=== PATIENT | male | born 1960 | race Hispanic/Latino ===

== ENCOUNTER 2018-08-10 14:00 | Emergency (ER) | payer OTHER | END 2018-08-10 15:43 | disposition home or self-care (01) | LOC: EDH 14:00 | DX: S83.8X1A Sprain of other specified parts of right knee, initial encounter (principal); E78.5 Hyperlipidemia, unspecified; I10 Essential (primary) hypertension; E11.9 Type 2 diabetes mellitus without complications; W01.0XXA Fall on same level from slipping, tripping and stumbling without subsequent striking against object, initial encounter; Y93.89 Activity, other specified; Y92.89 Other specified places as the place of occurrence of the external cause; Y99.8 Other external cause status | CPT/HCPCS: 73562 ==

== ENCOUNTER 2021-06-02 12:50 | Observation (INO) | payer OTHER ==
[~2021-06-02] VITALS: Ht 177.8 cm; Wt 127.0 kg
[2021-06-02] MEDS: INSULIN HUMULIN R 100 UNIT/ML 3ML SQ SCH ×2 (07:19→16:42)
[2021-06-02 12:52] VITALS: BP 135/105
[2021-06-02 13:28] VITALS: BP 132/92
[2021-06-02 13:52] LABS: BASOPHILS % (AUTO) 0.4 % (0.0-5.0); EOSINOPHILS % (AUTO) 1.4 % (0.0-8.0); HEMATOCRIT 51.6 % (42-54); LYMPHOCYTES % (AUTO) 26.6 % (21.0-51.0); MEAN CORPUSCULAR HEMOGLOBIN 32.5 pg (27.0-33.0); MEAN CORPUSCULAR HGB CONC 33.9 g/dL (32.0-36.0); MEAN CORPUSCULAR VOLUME 95.7 fL (79-99); MONOCYTES % (AUTO) 4.2 % (3.0-13.0); NEUTROPHILS % (AUTO) 66.9 % (40.0-77.0); PLATELET COUNT (AUTO) 214 K/uL (130-400); RED BLOOD CELL COUNT(AUTO) 5.39 MIL/uL (4.50-6.20); RED CELL DISTRIBUTION WIDTH 11.9 % (11.0-15.5); WHITE BLOOD COUNT (AUTO) 18.2 K/uL (4.8-10.8)
[2021-06-02] MEDS ORDERED: DiphenhydrAMINE HCL 50 MG/ML VIAL IV ONE (14:00)
[2021-06-02] MEDS ORDERED: DEXAMETHASONE SOD PHOSPHATE 10MG/ML 1ML VIAL IV ONE (14:00)
[2021-06-02] MEDS ORDERED: ONDANSETRON 4MG INJ IVP ONE (14:00)
[2021-06-02] MEDS ORDERED: 0.9%NACL 1000ML 1,000 ML IV ONE (14:00)
[2021-06-02] MEDS ORDERED: DEXAMETHASONE 10MG/ML 1ML VIAL 0 MG in 0.9%NACL 50ML 50 ML IV SCH (14:00)
[2021-06-02] MEDS ORDERED: FAMOTIDINE 20MG VIAL IV ONE (14:00)
[2021-06-02 14:08] LABS: ALBUMIN 4.8 g/dL (3.5-5.0); BILIRUBIN,TOTAL 0.8 mg/dL (0.2-1.0); CREATININE 1.2 mg/dL (0.5-1.5); POTASSIUM 3.8 mmol/L (3.5-5.1)
[2021-06-02 14:55] LABS: APPEARANCE,URINE Clear (CLEAR); BILIRUBIN,URINE Negative (NEGATIVE); COLOR,URINE Yellow (YELLOW); GLUCOSE, URINE (UA) >=1000 mg/dL (NEGATIVE); KETONES,URINE 15 mg/dL (NEGATIVE); LEUKOCYTE ESTERASE ,URINE Negative (NEGATIVE); NITRATE,URINE Negative (NEGATIVE); OCCULT BLOOD,URINE Negative (NEGATIVE); PH,URINE 5.5 (5.0-8.0); PROTEIN,URINE 300 mg/dL (NEGATIVE)
[2021-06-02 15:02] LABS: BACTERIA,URINE Rare /HPF (None Seen); MUCUS,URINE Few LPF (None Seen); RBC,URINE 0-1 /HPF (0-1); SQUAMOUS EPITHELIAL CELL,UR Rare /HPF (0-2); WBC,URINE 0-1 /HPF (0-1)
[2021-06-02 15:03] LABS: AMPHET/METH SCREEN,URINE NEGATIVE (NEGATIVE); BARBITURATE SCREEN, URINE NEGATIVE (NEGATIVE); BENZODIAZEPINES SCREEN,URINE NEGATIVE (NEGATIVE); CANNABINOID SCREEN,URINE NEGATIVE (NEGATIVE); COCAINE SCREEN,URINE NEGATIVE (NEGATIVE); OPIATE SCREEN,URINE NEGATIVE (NEGATIVE); PHENCYCLIDINE SCREEN,URINE NEGATIVE (NEGATIVE)
[2021-06-02] MEDS ORDERED: INSULIN HUMULIN R 100 UNIT/ML 3ML SQ SCH (15:30)
[2021-06-02] MEDS ORDERED: ACETAMINOPHEN 650 MG SUPPOSITORY RC PRN (16:00)
[2021-06-02] MEDS ORDERED: LIDOCAINE HCL-MPF 1% 2ML VIAL IV PRN (16:00)
[2021-06-02] MEDS ORDERED: CLONIDINE HCL 0.1 MG TABLET PO PRN (16:00)
[2021-06-02] MEDS ORDERED: GLUCAGON 1MG KIT 1 MG ML IM PRN (16:00)
[2021-06-02] MEDS ORDERED: ALBUTEROL 0.083% 2.5 MG/3 ML INH IH PRN (16:00)
[2021-06-02] MEDS ORDERED: DIPHENHYDRAMINE HCL 25 MG CAPSULE PO ONE (16:00)
[2021-06-02] MEDS ORDERED: DEXTROSE 50%-WATER 50 ML DISP.SYRIN IV PRN (16:00)
[2021-06-02] MEDS ORDERED: POTASSIUM CHLORIDE 20MEQ/100ML 100 ML IV PRN (16:00)
[2021-06-02] MEDS ORDERED: ACETAMINOPHEN 325 MG TAB PO PRN (16:00)
[2021-06-02] MEDS ORDERED: ONDANSETRON 4MG INJ IVP PRN (16:00)
[2021-06-02] MEDS ORDERED: DiphenhydrAMINE HCL 50 MG/ML VIAL IV PRN (16:00)
[2021-06-02] MEDS ORDERED: KCL 20 MEQ ERTAB PO PRN (16:00)
[2021-06-02] MEDS ORDERED: POTASSIUM CHLORIDE 10% ELIXIR 20 MEQ/15 ML UDCUP PO PRN (16:00)
[2021-06-02] MEDS: 0.9%NACL 1000ML 1,000 ML IV SCH ×2 (16:41→20:43)
[2021-06-02 18:07] LABS: POTASSIUM 4.5 mmol/L (3.5-5.1)
[2021-06-02 18:55] VITALS: BP 132/92
[2021-06-02] MEDS: FAMOTIDINE 20MG VIAL IV SCH (22:15)
[2021-06-02] MEDS: SOLU-MEDROL 40MG VIAL IVP SCH (22:15)
[2021-06-03 01:22] LABS: CREATININE 1.1 mg/dL (0.5-1.5); POTASSIUM 4.2 mmol/L (3.5-5.1)
[2021-06-03 03:28] VITALS: BP 138/89
[2021-06-03 04:40] LABS: BASOPHILS % (AUTO) 0.2 % (0.0-5.0); HEMATOCRIT 44.8 % (42-54); LYMPHOCYTES % (AUTO) 5.6 % (21.0-51.0); MEAN CORPUSCULAR HGB CONC 34.8 g/dL (32.0-36.0); MEAN CORPUSCULAR VOLUME 94.7 fL (79-99); MONOCYTES % (AUTO) 1.5 % (3.0-13.0); NEUTROPHILS % (AUTO) 92.4 % (40.0-77.0); PLATELET COUNT (AUTO) 161 K/uL (130-400); RED BLOOD CELL COUNT(AUTO) 4.73 MIL/uL (4.50-6.20); RED CELL DISTRIBUTION WIDTH 12.3 % (11.0-15.5); WHITE BLOOD COUNT (AUTO) 12.3 K/uL (4.8-10.8)
[2021-06-03 04:48] LABS: HEMOGLOBIN A1C 9.1 % (4.0-6.0)
[2021-06-03 04:55] LABS: CREATININE 0.9 mg/dL (0.5-1.5); POTASSIUM 4.1 mmol/L (3.5-5.1)
[2021-06-03] MEDS ORDERED: ENAL2.5T16 PO (05:47)
[2021-06-03] MEDS ORDERED: ERGO500093 PO (05:47)
[2021-06-03] MEDS ORDERED: DULA1.5P SQ (05:47)
[2021-06-03] MEDS ORDERED: ATOR40TA71 PO (05:47)
[2021-06-03 06:21] VITALS: BP 128/78
[2021-06-03] MEDS: 0.9%NACL 1000ML 1,000 ML IV SCH (06:37)
[2021-06-03] MEDS: INSULIN HUMULIN R 100 UNIT/ML 3ML SQ SCH (07:30)
[2021-06-03] MEDS ORDERED: DIPH25CA85 PO (08:13)
[2021-06-03] MEDS ORDERED: FAMO-136 PO (08:13)
[2021-06-03] MEDS ORDERED: METH4TAB3 PO (08:13)
[2021-06-03] MEDS: SOLU-MEDROL 40MG VIAL IVP SCH (08:53)
[2021-06-03] MEDS: FAMOTIDINE 20MG VIAL IV SCH (08:53)
[2021-06-03] MEDS ORDERED: ENOXAPARIN SODIUM 40 MG/0.4 ML SYRINGE SQ SCH (09:00)
== END 2021-06-03 09:00 | disposition home or self-care (01) ==
LOC: EDH 12:50 → EDHIP 15:55
PROVIDERS: ADMIT Internal Medicine Pulmonary Disease; ATTEND Internal Medicine Pulmonary Disease
DX: T63.441A Toxic effect of venom of bees, accidental (unintentional), initial encounter (principal); D72.829 Elevated white blood cell count, unspecified; E11.65 Type 2 diabetes mellitus with hyperglycemia; I10 Essential (primary) hypertension; R11.2 Nausea with vomiting, unspecified; E78.5 Hyperlipidemia, unspecified; E78.00 Pure hypercholesterolemia, unspecified; E66.09 Other obesity due to excess calories; Z79.4 Long term (current) use of insulin; Z79.899 Other long term (current) drug therapy; Z68.41 Body mass index [BMI] 40.0-44.9, adult; Y92.89 Other specified places as the place of occurrence of the external cause
CPT/HCPCS: 36415 ×2; 80048 ×2; 80053; 80305; 81001; 82550 ×3; 82948; 83036; 84484 ×4; 85025 ×2; 93005; 94640; 96361 ×2; 96372; 96374; 96375; 96376 ×2; 99284; G0378 ×16; J1100; J1200; J1650; J1815; J2405; J2920 ×2; J3490 ×3; J7030

== ENCOUNTER 2024-04-20 12:46 | Emergency (ER) | payer OTHER ==
[~2024-04-20] VITALS: Ht 177.8 cm; Wt 127.0 kg
[~2024-04-20 12:46] MED LIST: ATOR40TA71 PO; DIPH25CA85 PO; DULA1.5P SQ; ENAL2.5T71 PO; ERGO500093 PO; FAMO-136 PO; METH4TAB3 PO
[2024-04-20] MEDS: ONDANSETRON ODT 4MG TAB SL ONE (13:01)
[2024-04-20 13:48] LABS: POTASSIUM 4.3 mmol/L (3.5-5.1)
[2024-04-20 13:50] LABS: INR <= 0.93 (0.85-1.15); PROTHROMBIN TIME 10.7 SEC (9.6-11.6)
[2024-04-20 13:53] LABS: BILIRUBIN,TOTAL 0.9 mg/dL (0.2-1.0); TOTAL PROTEIN, SERUM 7.5 g/dL (6.0-8.3)
[2024-04-20 14:04] LABS: BASOPHILS # (AUTO) 0.04 K/uL (0.00-0.20); BASOPHILS % (AUTO) 0.5 % (0.0-5.0); EOSINOPHILS # (AUTO) 0.09 K/uL (0.00-0.70); EOSINOPHILS % (AUTO) 1.2 % (0.0-8.0); HEMATOCRIT 43.8 % (42-54); IMMATURE GRANULOCYTE ABSOLUTE 0.04 K/uL (0-1); LYMPHOCYTES # (AUTO) 1.3 K/uL (1.0-4.8); LYMPHOCYTES % (AUTO) 16.5 % (21.0-51.0); MEAN CORPUSCULAR HEMOGLOBIN 33.5 pg (27.0-33.0); MEAN CORPUSCULAR HGB CONC 35.8 g/dL (32.0-36.0); MEAN CORPUSCULAR VOLUME 93.4 fL (79-99); MONOCYTES # (AUTO) 0.4 K/uL (0.1-1.0); NEUTROPHILS # (AUTO) 5.8 K/uL (1.8-7.7); NEUTROPHILS % (AUTO) 76.3 % (40.0-77.0); PLATELET COUNT (AUTO) 143 K/uL (130-400); RED BLOOD CELL COUNT(AUTO) 4.69 MIL/uL (4.50-6.20); RED CELL DISTRIBUTION WIDTH 12.1 % (11.0-15.5); WHITE BLOOD COUNT (AUTO) 7.6 K/uL (4.8-10.8)
[2024-04-20] MEDS: 0.9%NACL 1000ML 1,000 ML IV ONE (15:16)
[2024-04-20 16:01] VITALS: BP 138/74; PULSE 68; RESP 18; O2SAT 97
== END 2024-04-20 16:01 | disposition home or self-care (01) ==
LOC: EDH 12:46
DX: R42 Dizziness and giddiness (principal); E11.65 Type 2 diabetes mellitus with hyperglycemia; E78.00 Pure hypercholesterolemia, unspecified; I10 Essential (primary) hypertension; E66.9 Obesity, unspecified; Z68.41 Body mass index [BMI] 40.0-44.9, adult
CPT/HCPCS: 36415; 70450; 71045; 80053; 84484; 85025; 85610; 85730; 93005

== ENCOUNTER 2024-12-08 15:09 | Emergency (ER) | payer OTHER, MEDICARE ==
[~2024-12-08] VITALS: Ht 177.8 cm; Wt 111.1 kg
--- NOTE | 2024-12-08 15:42 | EKG ---
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
[2024-12-08 15:54] LABS: BASOPHILS # (AUTO) 0.03 K/uL (0.00-0.20); BASOPHILS % (AUTO) 0.4 % (0.0-5.0); EOSINOPHILS # (AUTO) 0.17 K/uL (0.00-0.70); EOSINOPHILS % (AUTO) 2.4 % (0.0-8.0); HEMATOCRIT 45.5 % (42-54); IMMATURE GRANULOCYTE ABSOLUTE 0.02 K/uL (0-1); LYMPHOCYTES # (AUTO) 1.7 K/uL (1.0-4.8); LYMPHOCYTES % (AUTO) 23.5 % (21.0-51.0); MEAN CORPUSCULAR HEMOGLOBIN 33.4 pg (27.0-33.0); MEAN CORPUSCULAR HGB CONC 35.2 g/dL (32.0-36.0); MONOCYTES # (AUTO) 0.5 K/uL (0.1-1.0); MONOCYTES % (AUTO) 7.1 % (3.0-13.0); NEUTROPHILS # (AUTO) 4.8 K/uL (1.8-7.7); NEUTROPHILS % (AUTO) 66.3 % (40.0-77.0); PLATELET COUNT (AUTO) 143 K/uL (130-400); RED BLOOD CELL COUNT(AUTO) 4.79 MIL/uL (4.50-6.20); RED CELL DISTRIBUTION WIDTH 12.4 % (11.0-15.5); WHITE BLOOD COUNT (AUTO) 7.2 K/uL (4.8-10.8)
[2024-12-08] MEDS: ondanSETRON 4MG INJ IVP STA (15:58)
[2024-12-08] MEDS: morPHINE 2 MG SYG IVP ONE (15:59)
[2024-12-08 16:01] LABS: CREATININE 0.8 mg/dL (0.5-1.3); POTASSIUM 4.1 mmol/L (3.5-5.1)
--- NOTE | 2024-12-08 16:12 | HMCIMG ---
CT HEAD/BRAIN W/O CONTRAST HISTORY: Occipital headaches COMPARISON: None TECHNIQUE: Multiple sequential axial images of the head were obtained from the base of the skull through vertex. Patient was not given contrast through intravenous route. FINDINGS: The ventricles and extraventricular CSF spaces are dilated consistent with cerebral atrophy. Nonspecific white matter changes seen. There is no midline shift, mass effect or herniation. No acute intracranial bleed is seen. Visualized portion of the paranasal sinuses are grossly within normal limits. IMPRESSION: 1. No acute intracranial bleed is seen. 2. Atrophy with white matter changes. CT was performed with one or more following dose reduction techniques: automated exposure control, adjustment of the mA and kv according to patient's size, or use of a iterative reconstruction technique.
[2024-12-08] MEDS: 0.9%NACL 1000ML 1,000 ML IV STA (17:39)
--- NOTE | 2024-12-08 17:39 | ERN ---
ED Note History of Present Illness Stated Complaint: NECK PAIN,NAUSEA Chief Complaint: Headache Time Seen by MD: 15:11 Time Seen by Midlevel: 15:15 Dictation: 64-year-old male coming in complaining of an occipital headache and started yesterday . Patient states he tried taking Tylenol last night but did not help. Patient has a history of hypertension, diabetes and cholesterol. Denies any recent traumas. Denies any vision changes, nausea, vomiting, numbness, tingling or unilateral weakness. Denies any chest pain or chest discomfort. No recent illness. Allergies: Coded Allergies: No Known Drug Allergies (Unverified Allergy, Unknown, 06/02/21) Home Meds Active Scripts Diphenhydramine HCl (Benadryl) 25 Mg Capsule, 25 MG PO Q6HPRN PRN for ITCHING, #16 CAP Prov:NORMAN VERDE 06/03/21 Methylprednisolone (Medrol) 4 Mg Tab.ds.pk, 4 MG PO AD, #1 PACKET Prov:NORMAN VERDE 06/03/21 Famotidine (Pepcid) 20 Mg Tablet, 20 MG PO BID for 7 Days, #14 TAB Prov:NORMAN VERDE 06/03/21 Reported Medications Ergocalciferol (Vitamin D2) (Vitamin D2) 1,250 Mcg Capsule, 1 CAP PO QWEEK 06/03/21 Enalapril Maleate (Enalapril Maleate) 2.5 Mg Tablet, 1 TAB PO QDP 06/03/21 Atorvastatin Calcium (Atorvastatin Calcium) 40 Mg Tablet, 1 TAB PO QDP 06/03/21 Dulaglutide (Trulicity) 1.5 Mg/0.5 Ml Pen.injctr, 0.5 ML SQ QWEEK 06/03/21 Past Medical History Past Medical History: Diabetes-Type II, High Cholesterol, Hypertension Additional Past Medical Hx: OBESE Surgical History: None Review of System Dictation Constitutional: Negative for fever,chills, and weight loss Eyes: Negative for injury, pain,redness, and discharge ENT: Negative for injury,pain or swelling Cardiovascular: Negative for chest pain, palpitations, and edema Respiratory: Negative for shortness of breath, cough, and wheezing, Abdomen/GI: Negative for abdominal pain, nausea, vomiting, diarrhea, and constipation Back: Negative for injury and pain : Negative for injury, bleeding and discharge MS/Extremity: Negative for injury and deformity complaining of neck pain when he turns [id number] Skin: Negative for rash, and discoloration Neuro: Positive for headache, no weakness, no numbness, no tingling, and no seizure Psych: Negative for suicide ideation, homicidal ideation, and hallucinations Review of Systems: was completed Initial Vital Sign VS Vital Signs Date Time Temp Pulse Resp B/P (MAP) Pulse Ox O2 Delivery O2 Flow Rate FiO2 12/08/24 15:26 97.9 74 16 194/101 96 Room Air 0 12/08/24 15:59 21 Physical Exam Dictation General: awake, alert, NAD Head/Face: Normocephalic, atraumatic Eyes: PERRL, EOMI, vision at baseline ENT: oral cavity clear, TMs clear, no signs of infection Neck: Trachea midline, supple, no nuchal rigidity Cardiovascular: RRR, normal S1/S2, No MRGs, no JVD Respiratory: CTAB, no respiratory distress, No rales or wheezes Abdomen: Soft, non-tender, non-distended, normal bowel sounds, no guarding or rebound. Skin: Warm, dry, normal turgor, no rash MS/Extremity: Pulses equal, no cyanosis, neurovascular intact, FROM Neuro: COAx4, GCS 15, strength 5/5, CN 2-12 intact, normal cerebellar exam, normal gait, Psych: Normal behavior, mood, and affect normal Results (Laboratory/Radiology) Laboratory/Radiology Laboratory Tests Test 12/08/24 15:48 White Blood Count 7.2 K/uL (4.8-10.8) Red Blood Count 4.79 MIL/uL (4.50-6.20) Hemoglobin 16.0 g/dL (14.0-18.0) Hematocrit 45.5 % (42-54) Mean Corpuscular Volume 95.0 fL (79-99) Mean Corpuscular Hemoglobin 33.4 pg (27.0-33.0) H Mean Corpuscular Hemoglobin Concent 35.2 g/dL (32.0-36.0) Red Cell Distribution Width 12.4 % (11.0-15.5) Platelet Count 143 K/uL (130-400) Mean Platelet Volume 9.8 fL (7.5-10.5) Immature Granulocyte % (Auto) 0.3 % (0-1) Neutrophils (%) (Auto) 66.3 % (40.0-77.0) Lymphocytes (%) (Auto) 23.5 % (21.0-51.0) Monocytes (%) (Auto) 7.1 % (3.0-13.0) Eosinophils (%) (Auto) 2.4 % (0.0-8.0) Basophils (%) (Auto) 0.4 % (0.0-5.0) Neutrophils # (Auto) 4.8 K/uL (1.8-7.7) Lymphocytes # (Auto) 1.7 K/uL (1.0-4.8) Monocytes # (Auto) 0.5 K/uL (0.1-1.0) Eosinophils # (Auto) 0.17 K/uL (0.00-0.70) Basophils # (Auto) 0.03 K/uL (0.00-0.20) Absolute Immature Granulocyte (auto 0.02 K/uL (0-1) Nucleated Red Blood Cells 0.0 % (0.0-0.19) Sodium Level 140 mmol/L (136-145) Potassium Level 4.1 mmol/L (3.5-5.1) Chloride Level 102 mmol/L (101-111) Carbon Dioxide Level 29 mmol/L (21-32) Blood Urea Nitrogen 13 mg/dL (7-18) Creatinine 0.8 mg/dL (0.5-1.3) Glomerular Filtration Rate Calc 100 mL/min (>90) Random Glucose 201 mg/dL (70-105) H Total Calcium 8.7 mg/dL (8.5-10.1) Labs Reviewed?: Yes EKG Comment: Pacemaker spikes or artifact, sinus rhythm at a rate 74, no STEMI interpreted by ER MD CT Scan Comment: [place] [id number] [address] IMAGING REPORT Signed PATIENT: BATOOL MOODY MR#: [id number] : 1960 SEX: M AGE: 64 LOCATION: [facility] ORDER [id number] STATUS: REG ER REPORT#: [id number] SERVICE 1529 REASON: occipital rojas ORDERING PHYSICIAN: BONNIE CABAN NP PROCEDURE: HEAD WO - CT HEAD/BRAIN W/O CONTRAST CT HEAD/BRAIN W/O CONTRAST HISTORY: Occipital headaches COMPARISON: None TECHNIQUE: Multiple sequential axial images of the head were obtained from the base of the skull through vertex. Patient was not given contrast through intravenous route. FINDINGS: The ventricles and extraventricular CSF spaces are dilated consistent with cerebral atrophy. Nonspecific white matter changes seen. There is no midline shift, mass effect or herniation. No acute intracranial bleed is seen. Visualized portion of the paranasal sinuses are grossly within normal limits. IMPRESSION: 1. No acute intracranial bleed is seen. 2. Atrophy with white matter changes. CT was performed with one or more following dose reduction techniques: automated exposure control, adjustment of the mA and kv according to patient's size, or use of a iterative reconstruction technique. DICTATED BY: ALEKSANDR TREVIÑO MD DATE: 12/08/24 1608 ELECTRONICALLY SIGNED BY: ALEKSANDR TREVIÑO MD DATE: 12/08/24 1612 ED Course ED Course Orders Procedure Category Date Status Time Cbc With Differential LAB 12/08/24 Complete 15:29 Basic Metabolic Panel LAB 12/08/24 Complete 15:29 12 Lead Ekg Tracing- EKG 12/08/24 Complete Technical 15:29 Ct Head/Brain W/O CT 12/08/24 Resulted Contrast 15:29 Ondansetron 4mg Inj PHA 12/08/24 Complete (Zofran 4mg Inj) 15:29 Morphine 2mg Syg PHA 12/08/24 Complete (Morphine 2mg Syg) 15:30 Hydralazine 20mg Inj PHA 12/08/24 Complete (Apresoline 20mg In 17:16 0.9%Nacl 1000ml (Ns PHA 12/08/24 In Process 1000ml) 17:20 Prochlorperazine PHA 12/08/24 Complete 10mg/2ml Inj 17:20 Diphenhydramine Hcl PHA 12/08/24 Complete (Benadryl Inj) 17:20 Current Medications Medications (Trade) Dose Ordered Sig/Gniette Route PRN Reason Start Time Stop Time Status Last Admin Dose Admin Diphenhydramine HCl (BENAdryl INJ) 25 mg ONCE STAT IV 12/08/24 17:20 1/20/25 17:21 DC 12/08/24 17:42 Hydralazine HCl (APRESOLine 20MG INJ) 10 mg ONCE STAT IV 12/08/24 17:16 12/08/24 17:18 DC 12/08/24 17:40 Morphine Sulfate (morPHINE 2MG SYG) 2 mg ONCE ONCE IVP 12/08/24 15:30 12/08/24 15:32 DC 12/08/24 15:59 Ondansetron HCl (zoFRAN 4MG INJ) 4 mg ONCE STAT IVP 12/08/24 15:29 12/08/24 15:31 DC 12/08/24 15:58 Prochlorperazine Edisylate (Compazine 10mg/ 2ml Inj) 10 mg ONCE STAT IV 12/08/24 17:20 12/08/24 17:21 DC 12/08/24 17:40 Sodium Chloride 1,000 ml @ 500 mls/hr Q2H STAT IV 12/08/24 17:20 12/08/24 19:19 12/08/24 17:39 Vital Signs Date Time Temp Pulse Resp B/P (MAP) Pulse Ox O2 Delivery O2 Flow Rate FiO2 12/08/24 15:59 98.4 74 18 190/100 98 Room Air* 0 21 12/08/24 15:26 97.9 74 16 194/101 96 Room Air 0 Medical Decision Making MDM MDM: 64-year-old male coming in complaining of an occipital headache and neck pain when he turns [id number] started yesterday . Patient states he tried taking Tylenol last night but did not help. Patient has a history of hyperte nsion, diabetes and cholesterol. Denies any recent traumas. Denies any vision changes, nausea, vomiting, numbness, tingling or unilateral weakness. Denies any chest pain or chest discomfort. No recent illness.CBC shows no leukocytosis, no anemia, no thrombocytopenia. Chemistries unremarkable. EKGs shows no ST elevations or dysrhythmias. CT scan of the head shows no acute fin dings. After pain medication and migraine cocktail patient states he feels better also brought down the blood pressure with a hydralazine. Educated patient to take his medications as prescribed. Follow up with PCP in 1-2 days. Differential diagnosis: Radiculopathy, muscle spasms, hypertensive emergency, ICH Rationale: Tests considered and ordered secondary to shared decision making include: Previous outside records reviewed: Old ER visits. Risk of complication and/or morbidity or mortality of patient management: None Medications-Per medication reconciliation Need for hospitalization: Patient does not meet criteria for hospitalization. Need for emergency major/minor surgery: No There are no social concerns with this patient. Prescription drug management Prescriptions will include symptomatic care Patient's prior external medical records from other ER visits were reviewed by me as indicated. Prior testing and results from previous visits were reviewed. Prior tests were taken into account with medical decision making and resource utilization, independent historian/historians were used to obtain complete medical history. I independently interpreted the test that were performed, results were reviewed by me and considered findings on radiology if ordered. Medical management and examination interpretation discussions were had by me with other qualified healthcare professionals as indicated for the patient's care. DX & DISP Disposition: Discharge Departure Impression: Primary Impression: Tension headache Additional Impression: Hypertension Condition: Stable Additional Instructions: Follow up with PCP in 1-2 days return if symptoms worsen Referrals: AGUSTIN CALDERON M.D. (PCP) Time of Disposition: 19:10 I have reviewed the case, and I agree with, Diagnosis and Plan BONNIE CABAN NP Dec 08, 2024 17:39
[2024-12-08] MEDS: PROCHLORPERAZINE 10MG/2ML INJ IV STA (17:40)
[2024-12-08] MEDS: hydrALAZine 20MG/ML VIAL IV STA (17:40)
[2024-12-08] MEDS: DiphenhydrAMINE HCL 50 MG/ML VIAL IV STA (17:42)
[2024-12-08 19:14] VITALS: BP 140/74; PULSE 86; RESP 16; TEMP 98.3; O2SAT 98
== END 2024-12-08 19:20 | disposition home or self-care (01) ==
LOC: EDH 15:09
DX: G44.209 Tension-type headache, unspecified, not intractable (principal); I10 Essential (primary) hypertension; E11.9 Type 2 diabetes mellitus without complications; E78.00 Pure hypercholesterolemia, unspecified; Z79.899 Other long term (current) drug therapy
CPT/HCPCS: 99285; 96374; 96375; 70450; 96361; 80048; 85025; 36415; 93005; J1200; J2270; J7030; J0360; J0780; J2405

== ENCOUNTER 2025-05-02 15:25 | Emergency (ER) | payer OTHER, MEDICARE ==
[~2025-05-02] VITALS: Ht 177.8 cm; Wt 121.6 kg
[2025-05-02 16:18] LABS: BASOPHILS # (AUTO) 0.02 K/uL (0.00-0.20); BASOPHILS % (AUTO) 0.2 % (0.0-5.0); EOSINOPHILS # (AUTO) 0.03 K/uL (0.00-0.70); EOSINOPHILS % (AUTO) 0.4 % (0.0-8.0); HEMATOCRIT 46.6 % (42-54); IMMATURE GRANULOCYTE ABSOLUTE 0.04 K/uL (0-1); LYMPHOCYTES # (AUTO) 0.9 K/uL (1.0-4.8); MEAN CORPUSCULAR HEMOGLOBIN 33.2 pg (27.0-33.0); MEAN CORPUSCULAR HGB CONC 33.9 g/dL (32.0-36.0); MEAN CORPUSCULAR VOLUME 97.9 fL (79-99); MONOCYTES # (AUTO) 0.4 K/uL (0.1-1.0); MONOCYTES % (AUTO) 4.1 % (3.0-13.0); NEUTROPHILS # (AUTO) 7.1 K/uL (1.8-7.7); NEUTROPHILS % (AUTO) 83.8 % (40.0-77.0); PLATELET COUNT (AUTO) 134 K/uL (130-400); RED BLOOD CELL COUNT(AUTO) 4.76 MIL/uL (4.50-6.20); RED CELL DISTRIBUTION WIDTH 12.3 % (11.0-15.5); WHITE BLOOD COUNT (AUTO) 8.5 K/uL (4.8-10.8)
[2025-05-02] MEDS: ondanSETRON 4MG INJ IVP ONE (16:25)
[2025-05-02] MEDS: LACTATED RINGERS 1000ML 1,000 ML IV ONE (16:26)
[2025-05-02 16:27] LABS: POTASSIUM 3.6 mmol/L (3.5-5.1)
[2025-05-02 16:58] LABS: APPEARANCE,URINE CLEAR (CLEAR); BILIRUBIN,URINE NEGATIVE (NEGATIVE); COLOR,URINE LIGHT-YELLOW (YELLOW); GLUCOSE, URINE (UA) >=1000 mg/dL (NEGATIVE); KETONES,URINE 5 mg/dL (NEGATIVE); LEUKOCYTE ESTERASE ,URINE NEGATIVE Leu/uL (NEGATIVE); NITRATE,URINE NEGATIVE (NEGATIVE); OCCULT BLOOD,URINE NEGATIVE (NEGATIVE); PROTEIN,URINE NEGATIVE (NEGATIVE); UROBILINOGEN,URINE 0.2 mg/dL (0.2-1.0)
[2025-05-02 16:59] LABS: ADD UA MICROSCOPIC YES
[2025-05-02 17:01] LABS: RBC,URINE 0-1 /HPF (0-1); SQUAMOUS EPITHELIAL CELL,UR FEW /HPF (0-2); WBC,URINE 0-1 /HPF (0-1)
--- NOTE | 2025-05-02 17:17 | HMCIMG ---
CHEST 1VW HISTORY: Chest pain COMPARISON: 04/20/2004 FINDINGS: A frontal projection of the chest was obtained. No acute pulmonary infiltrates is seen. The heart is borderline enlarged. Prominent interstitial markings are seen. Degenerative changes are seen. No evidence of aortic calcification is seen. IMPRESSION: 1. No acute pulmonary infiltrate is seen.
--- NOTE | 2025-05-02 17:20 | ERN ---
General Chief Complaint: Fatigue Stated Complaint: heat exhaustion Time Seen by MD: 15:27 Source: patient History of Present Illness Initial Comments PATIENT IS A 65-YEAR-OLD GENTLEMAN COMING IN TO BE EVALUATED FOR GENERALIZED BODY WEAKNESS. PER PATIENT HE HAS NOT IN THE SUN FELT WEAK DECIDED TO COME IN FOR FURTHER EVALUATION. Allergies: Coded Allergies: No Known Drug Allergies (Unverified Allergy, Unknown, 06/02/21) Home Meds Active Scripts Diphenhydramine HCl (Benadryl) 25 Mg Capsule, 25 MG PO Q6HPRN PRN for ITCHING, #16 CAP Prov:NORMAN VERDE BLANKET CUTTER HAND 06/03/21 Methylprednisolone (Medrol) 4 Mg Tab.ds.pk, 4 MG PO AD, #1 PACKET Prov:NORMAN VERDE BLANKET CUTTER HAND 06/03/21 Famotidine (Pepcid) 20 Mg Tablet, 20 MG PO BID for 7 Days, #14 TAB Prov:NORMAN VERDE BLANKET CUTTER HAND 06/03/21 Reported Medications Ergocalciferol (Vitamin D2) (Vitamin D2) 1,250 Mcg Capsule, 1 CAP PO QWEEK 06/03/21 Enalapril Maleate (Enalapril Maleate) 2.5 Mg Tablet, 1 TAB PO QDP 06/03/21 Atorvastatin Calcium (Atorvastatin Calcium) 40 Mg Tablet, 1 TAB PO QDP 06/03/21 Dulaglutide (Trulicity) 1.5 Mg/0.5 Ml Pen.injctr, 0.5 ML SQ QWEEK 06/03/21 Past Medical History Past Medical History: Diabetes-Type II, High Cholesterol, Hypertension Medical History Other: OBESE Past Surgical History: None ROS Dictation CONSTITUTIONAL: NO CHILLS, NO FEVER, WEAKNESS, NO DIAPHORESIS, NO MALAISE. HEAD/FACE: NO SIGNS OF TRAUMA. EENT: NO EYE PAIN, NO BLURRED VISION, NO TEARING, NO DOUBLE VISION, NO EAR PAIN, NO EAR DISCHARGE, NO NOSE PAIN, NO NASAL CONGESTION, NO THROAT PAIN, NO THROAT SWELLING, NO MOUTH PAIN. RESPIRATORY: NO COUGH, NO ORTHOPNEA, NO SOB, NO STRIDOR, NO WHEEZING. CARDIOVASCULAR: NO CHEST PAIN, NO EDEMA, NO PALPITATIONS, NO SYNCOPE. GASTROINTESTINAL/ABDOMINAL: NO ABDOMINAL PAIN, NO CONSTIPATION, NO DIARRHEA, NO NAUSEA, NO VOMITING. GENITOURINARY: NO ABNORMAL DISCHARGE, NO DYSURIA, NO FREQUENT URINATION, NO HEMATURIA. NO COMPLAINTS OF PAIN IN THE GENITALS. MUSCULOSKELETAL: NO BACK PAIN, NO GOUT, NO JOINT PAIN, NO JOINT SWELLING, NO MUSCLE PAIN, NO MUSCLE STIFFNESS, NO NECK PAIN. INTEGUMENTARY: NO CHANGE IN COLOR, NO CHANGE IN HAIR/NAILS, NO DRYNESS, NO LESION, NO LUMPS, NO RASH. NEUROLOGICAL/PSYCH: NO ANXIETY, NOT DEPRESSED, NO EMOTIONAL PROBLEM, NO HEADACHE, NO NUMBNESS, NO PRE-EXISTING DEFICIT, NO HISTORY OF SEIZURES, NO TREMORS, NO WEAKNESS. HEMATOLOGIC/LYMPHATIC: NOT ANEMIC, NO HISTORY OF BLOOD CLOTS, NO APPARENT BLEEDING, NO BRUISING, GLANDS NOT SWOLLEN. ALL SYSTEMS NEGATIVE, EXCEPT NOTED. Physical Exam Physical Exam Dictation VITAL SIGNS: REVIEWED. GENERAL APPEARANCE: ALERT, ORIENTED X3, NO ACUTE DISTRESS, OBESE. HEAD AND FACE: NON-TRAUMATIC. EYES: PERRL, PINK CONJUNCTIVAS, EYELID NO TRAUMA, ANTERIOR CHAMBER CLEAR. EARS: PINNAS INTACT AND NO SIGNS OF TRAUMA OR ERYTHEMA. EAR CANALS CLEAR AND NO DISCHARGE. TMS NO ERYTHEMA. NOSE: NO DISCHARGE, NO BLEEDING. OROPHARYNX: MOUTH NORMAL, TEETH NO CARIES, TONGUE PINK. PHARYNX CLEAR, NO ERYTHEMA. TONSILS NO EXUDATES, NO ABSCESSES NOTED. MUCOUS MEMBRANE MOIST. NECK: SUPPLE, NON-TENDER, NO THYROMEGALY, NO MASSES, NO JVD, NO BRUITS. BREAST: DEFERRED. CHEST: NO TENDERNESS, NO CREPITUS, NO PARADOXICAL MOVEMENT, NO RETRACTIONS. LUNGS: CLEAR, WELL-VENTILATED, SYMMETRIC, NO RALES, NO WHEEZING, NO RHONCHI, NO STRIDOR, GOOD BREATH SOUNDS BILATERALLY. HEART: REGULAR RATE, REGULAR RHYTHM, NO MURMUR, NO GALLOPS. VASCULAR: NO PERIPHERAL EDEMA. ABDOMEN: SOFT, POSITIVE BOWEL SOUNDS, NONDISTENDED, NO GUARDING, NONTENDER, NO REBOUND, NO MASSES NO HEPATOMEGALY, NO SPLENOMEGALY, NO COOK'S SIGN, NO HERNIAS. RECTAL: DEFERRED. GENITAL: DEFERRED. NEUROLOGICAL: NORMAL SPEECH, GROSS MOTOR FUNCTION INTACT, GROSS SENSORY FUNCTION INTACT. MUSCULOSKELETAL: NECK NONTENDER, FULL RANGE OF MOTION, BACK NONTENDER, FULL RANGE OF MOTION. EXTREMITIES: NONTENDER, FULL RANGE OF MOTION. SKIN: COLOR PINK, DRY, NO TURGOR, NO RASH, NO LACERATIONS, NO ABRASIONS, NO CONTUSIONS. LYMPHATICS: DEFERRED. Results Laboratory and Microbiology Lab and Micro Result Laboratory Tests Test 05/02/25 16:06 05/02/25 16:48 White Blood Count 8.5 K/uL (4.8-10.8) Red Blood Count 4.76 MIL/uL (4.50-6.20) Hemoglobin 15.8 g/dL (14.0-18.0) Hematocrit 46.6 % (42-54) Mean Corpuscular Volume 97.9 fL (79-99) Mean Corpuscular Hemoglobin 33.2 pg (27.0-33.0) H Mean Corpuscular Hemoglobin Concent 33.9 g/dL (32.0-36.0) Red Cell Distribution Width 12.3 % (11.0-15.5) Platelet Count 134 K/uL (130-400) Mean Platelet Volume 10.0 fL (7.5-10.5) Immature Granulocyte % (Auto) 0.5 % (0-1) Neutrophils (%) (Auto) 83.8 % (40.0-77.0) H Lymphocytes (%) (Auto) 11.0 % (21.0-51.0) L Monocytes (%) (Auto) 4.1 % (3.0-13.0) Eosinophils (%) (Auto) 0.4 % (0.0-8.0) Basophils (%) (Auto) 0.2 % (0.0-5.0) Neutrophils # (Auto) 7.1 K/uL (1.8-7.7) Lymphocytes # (Auto) 0.9 K/uL (1.0-4.8) L Monocytes # (Auto) 0.4 K/uL (0.1-1.0) Eosinophils # (Auto) 0.03 K/uL (0.00-0.70) Basophils # (Auto) 0.02 K/uL (0.00-0.20) Absolute Immature Granulocyte (auto 0.04 K/uL (0-1) Nucleated Red Blood Cells 0.0 % (0.0-0.19) Sodium Level 143 mmol/L (136-145) Potassium Level 3.6 mmol/L (3.5-5.1) Chloride Level 106 mmol/L (101-111) Carbon Dioxide Level 26 mmol/L (21-32) Blood Urea Nitrogen 16 mg/dL (7-18) Creatinine 1.0 mg/dL (0.5-1.3) Glomerular Filtration Rate Calc 85 mL/min (>90) Random Glucose 162 mg/dL (70-105) H Total Calcium 9.0 mg/dL (8.5-10.1) Total Creatine Kinase 255 U/L (21-232) H Troponin I High Sensitivity 4 ng/L (4-75) Urine Color LIGHT-YELLOW (YELLOW) Urine Appearance CLEAR (CLEAR) Urine pH 6.0 (5.0-8.0) Urine Specific [place] 1.024 (1.001-1.031) Urine Protein NEGATIVE mg/dL (NEGATIVE) Urine Glucose (UA) >=1000 mg/dL (NEGATIVE) H Urine Ketones 5 mg/dL (NEGATIVE) H Urine Occult Blood NEGATIVE (NEGATIVE) Urine Nitrate NEGATIVE (NEGATIVE) Urine Bilirubin NEGATIVE mg/dL (NEGATIVE) Urine Urobilinogen 0.2 mg/dL (0.2-1.0) Urine Leukocyte Esterase NEGATIVE Vinod/uL Urine RBC 0-1 /HPF (0-1) Urine WBC 0-1 /HPF (0-1) Urine Squamous Epithelial Cells FEW /HPF (0-2) Urine Bacteria None /HPF (None Seen) Urine Hyaline Casts 2-5 /LPF (0-1 /LPF) H Labs Reviewed?: Yes EKG/XRAY/US/CT/MRI EKG Comment 05/02/2025 TIME 3:54 P.M. VENTRICULAR RATE 81 SINUS RHYTHM [place] [address] WAVE ELEVATION OR DEPRESSION X-RAY Comment CHEST X-RAY-NAD MDM MDM: DIFFERENTIAL DIAGNOSIS: HEAT STROKE, ELEVATED CK, HEAT EXHAUSTION, DEHYDRATION RATIONALE: TESTS CONSIDERED AND ORDERED SECONDARY TO SHARED DECISION MAKING INCLUDE: PREVIOUS OUTSIDE RECORDS REVIEWED: OLD ER VISITS. RISK OF COMPLICATION AND/OR MORBIDITY OR MORTALITY OF PATIENT MANAGEMENT: NONE MEDICATIONS-PER MEDICATION RECONCILIATION NEED FOR HOSPITALIZATION: PATIENT DOES NOT MEET CRITERIA FOR HOSPITALIZATION. PATIENT IS A 65-YEAR-OLD GENTLEMAN COMING IN TO BE EVALUATED FOR GENERALIZED BODY WEAKNESS. PATIENT DID STATE THAT HE WAS OUT IN THE SUN. PATIENT WAS HYDRATED CARDIAC WORKUP NEGATIVE FOR ACUTE FINDINGS. PATIENT STATES HE FEELS MUCH BETTER WITH THE IV HYDRATION WE WILL BE DISCHARGED IN STABLE CONDITION WITH A DIAGNOSIS OF HEAT EXHAUSTION. ED Course Orders Procedure Category Date Status Time Cbc With Differential LAB 05/02/25 Complete 15:38 Chest 1vw RAD 05/02/25 Taken 15:38 12 Lead Ekg Tracing- EKG 05/02/25 Logged Technical 15:38 Lactated Ringers PHA 05/02/25 Complete 1000ml (Lactated 16:00 Creatine Kinase, Total LAB 05/02/25 Complete 15:38 Troponin I High LAB 05/02/25 Complete Sensitivity 15:38 Urinalysis Profile LAB 05/02/25 Complete 15:38 Basic Metabolic Panel LAB 05/02/25 Complete 15:38 Ondansetron 4mg Inj PHA 05/02/25 Complete (Zofran 4mg Inj) 16:00 Current Medications Medications (Trade) Dose Ordered Sig/Ginette Route PRN Reason Start Time Stop Time Status Last Admin Dose Admin Lactated Ringer's 1,000 ml @ 0 mls/hr ONCE ONCE IV 05/02/25 16:00 05/02/25 16:01 DC 05/02/25 16:26 Ondansetron HCl (zoFRAN 4MG INJ) 4 mg ONCE ONCE IVP 05/02/25 16:00 05/02/25 16:01 DC 05/02/25 16:25 Vital Signs Date Time Temp Pulse Resp B/P (MAP) Pulse Ox O2 Delivery O2 Flow Rate FiO2 05/02/25 15:40 98.6 84 20 116/72 97 Room Air 0 DX & DISP Disposition: Discharge Departure Impression: Primary Impression: Heat exhaustion Additional Impression: Dehydration Condition: Stable Additional Instructions: FOLLOW-UP WITH PRIMARY CARE PROVIDER IN 1 TO 2 DAYS. TAKE MEDICATIONS DIRECTED HERE IN THE EMERGENCY ROOM. OKAY TO CONTINUE HOME MEDICATIONS UNLESS OTHERWISE DISCUSSED DURING YOUR VISIT IN THE EMERGENCY ROOM TODAY. RETURN TO YOUR NEAREST EMERGENCY ROOM IF SYMPTOMS WORSEN OR IF THERE IS NO IMPROVEMENT. CALL 911 IF YOU NEED IMMEDIATE ASSISTANCE. TAKE TYLENOL [id number] NEEDED AND IF NO CONTRAINDICATIONS ARE PRESENT. INCREASE ORAL HYDRATION. A WOUND CULTURE OR URINE CULTURE WAS ORDERED HERE IN THE EMERGENCY ROOM DEPARTMENT PLEASE FOLLOW-UP WITH PRIMARY CARE PROVIDER AND ADVISE THEM TO GET REPORTS FROM OUR FACILITY. IF YOU HAD ANY GIOVANNI WRAP/SPLINTS THAT WERE APPLIED HERE, PLEASE DO NOT REMOVE THEM UNTIL YOU SEE YOUR PRIMARY CARE OR SPECIALTY. REFERRALS: Referrals: AGUSTIN CALDERON M.D. (PCP) Time of Disposition: 17:18 YOSEPH CAMARA MD May 02, 2025 17:20
[2025-05-02 18:05] VITALS: BP 123/54; PULSE 66; RESP 16; TEMP 98.3; O2SAT 98
--- NOTE | 2025-05-04 07:36 | EKG ---
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
== END 2025-05-02 18:30 | disposition home or self-care (01) ==
LOC: EDH 15:25
DX: T67.5XXA Heat exhaustion, unspecified, initial encounter (principal); E86.0 Dehydration; E11.9 Type 2 diabetes mellitus without complications; E78.00 Pure hypercholesterolemia, unspecified; I10 Essential (primary) hypertension; Z79.899 Other long term (current) drug therapy; X58.XXXA Exposure to other specified factors, initial encounter; Y93.89 Activity, other specified; Y92.89 Other specified places as the place of occurrence of the external cause; Y99.8 Other external cause status
CPT/HCPCS: 99285; 96374; 71045; 96361; 82550; 84484; 80048; 85025; 81001; 36415; 93005; J7120; J2405; 99284

== ENCOUNTER → 2025-05-20 | Outpatient (CLI) | payer OTHER, MEDICARE ==
[~2025-05-20] MED LIST changes: +IOHEXOL-350 75 ML VIAL IV ONE
--- NOTE | 2025-05-21 12:42 | HMCIMG ---
EXAM: CT chest with and without contrast. CLINICAL HISTORY: Shortness of breath. TECHNIQUE: Thin collimated axial CT images of the chest were obtained with sagittal and coronal reformatted images also submitted. CT scan done according to ALARA (As Low as Reasonably Achievable). Intravenous contrast was administered. COMPARISON: Chest x-ray dated 05/02/25. FINDINGS: The lungs are clear. No pulmonary nodules. No pleural effusions. No pericardial effusion. The cardiac chambers and intrathoracic vessels are well opacified. The heart size is within normal limits. Tiny calcific atheromatous plaques in the coronary arteries and intrathoracic aorta. No significant axillary, supraclavicular, or mediastinal lymphadenopathy. No focal thyroid abnormality. Limited views of the upper abdomen demonstrate a small hiatal hernia. No acute or suspicious osseous abnormality. Mild degenerative osseous changes. IMPRESSION: 1. No acute cardiopulmonary abnormality. 2. No pulmonary nodules. 3. Small hiatal hernia. /[place]
== END | disposition home or self-care (01) ==
LOC: RAH 05-19 10:47
PROVIDERS: ATTEND Family Medicine
DX: R06.02 Shortness of breath (principal); I25.10 Atherosclerotic heart disease of native coronary artery without angina pectoris; I70.0 Atherosclerosis of aorta; K44.9 Diaphragmatic hernia without obstruction or gangrene; Z87.891 Personal history of nicotine dependence
CPT/HCPCS: 71270; Q9967

== ENCOUNTER → 2025-08-05 | Outpatient (CLI) | payer OTHER, MEDICARE ==
[~2025-08-05] MED LIST changes: -IOHEXOL-350 75 ML VIAL IV ONE
--- NOTE | 2025-08-05 14:25 | HMCSR ---
APPROVED REPORT EXAM: Two-dimensional and M-mode echocardiogram with Doppler and color Doppler. INDICATION ICD: R79.89 2D Dimensions RVDd4.1 cmLVEF(%)73.2 (>50%)LVED Vol(simp.)109.9 mL IVSd0.9 (0.7-1.1cm)FS(%)42 %LVES Vol(simp.)47.8 mL LVDd4.9 (3.8-5.6cm)LA (2D)4.4 (1.6-4.0cm)LVEF(%, simp.)56 % PWd0.8 (0.7-1.1cm)Ao Root(2D)3.9 (2.0-3.7cm)LA ESV INDEX (BP)25.49 mL/m2 LVDs2.8 (2.5-4.0cm)LVOT diam2.6 (1.8-2.4cm) IVC diam1.6 cm Aortic Valve AoV Vmax1.3 m/Tony Peak GR6.8 mmHgLVOT Vmax0.9 m/s AoV VTI0.3 mAo Mean GR3.5 mmHgLVOT VTI0.17 m JOEY (VMAX)3.48 cm2AVA (VTI) 3.4 cm2 Mitral Valve MV E Vmax52.8 cm/sDECEL Lktq984 ms MV A Vmax63.6 cm/sP 1/2 T56 ms E/A ratio0.8MVA (PHT)3.9 cm2 TDI E/E' Medial9.0E/E' Lateral6.8 Medial E' Peak V5.87 cm/sLateral E' Peak V7.71 cm/s Pulmonary Valve PV Vmax1.5 m/sPV VTI0.29 mPV Mean GR4.6 mmHg PV Peak GR8.8 mmHg Left Ventricle The left ventricle is normal size. There is normal left ventricular wall thickness. LVEF is 55-60%. T he left ventricular diastolic function is normal. Right Ventricle The right ventricle is normal size. The right ventricular systolic function is normal. Atria The left atrium size is normal. The right atrium size is normal. Aortic Valve The aortic valve is normal in structure. No aortic regurgitation is present. There is no aortic valvu lar stenosis. Mitral Valve The mitral valve is normal in structure. There is no mitral valve regurgitation noted. There is no mi tral valve stenosis. Tricuspid Valve The tricuspid valve is normal in structure. There is no tricuspid valve regurgitation noted. Pulmonic Valve The pulmonary valve is normal in structure. There is no pulmonic valvular regurgitation. Great Vessels The aortic root is normal in size. The IVC is normal in size and collapses >50% with inspiration. Pericardium There is no pericardial effusion. Conclusion LVEF is 55-60%.
== END | disposition home or self-care (01) ==
LOC: RAH 13:33
PROVIDERS: ATTEND Family Medicine
DX: I10 Essential (primary) hypertension (principal); R06.02 Shortness of breath; E11.42 Type 2 diabetes mellitus with diabetic polyneuropathy
CPT/HCPCS: 93306